=== PATIENT | male | born 1985 | race Caucasian/White ===

== ENCOUNTER → 2016-08-17 | Outpatient (CLI) | payer OTHER ==
[~2016-08-17] MED LIST: PSEUTAB98 PO
--- NOTE | 2016-08-17 11:43 | DIAGNOSTIC IMAGING REPORT ---
LEFT SHOULDER MIN 2 VIEWS ROUTINE CLINICAL HISTORY: Left shoulder pain. COMPARISON STUDY: None. FINDINGS: No fracture or dislocation within the left shoulder. The left clavicle is intact. Soft tissues are unremarkable. IMPRESSION: No fracture or dislocation within the left shoulder. Electronically signed by: Victoriano Puente M.D. 08/17/2016 11:41 AM
--- NOTE | 2016-08-17 11:48 | DIAGNOSTIC IMAGING REPORT ---
RIBS UNILATERAL WITH PA CHEST CLINICAL HISTORY: Right-sided rib pain. Coughing. COMPARISON STUDY: Chest 02/17/2015. FINDINGS: The lungs are clear. The heart is normal in size. No pleural effusions. No pneumothorax. No rib fractures. IMPRESSION: No rib fractures. No pneumothorax. Electronically signed by: Victoriano Puente M.D. 08/17/2016 11:46 AM
== END | disposition home or self-care (01) ==
LOC: C.RADPV 11:16
PROVIDERS: ATTEND Nurse Practitioner Family
DX: R07.81 Pleurodynia (principal); M25.512 Pain in left shoulder

== ENCOUNTER → 2017-09-13 | Outpatient (CLI) | payer OTHER ==
--- NOTE | 2017-09-13 10:39 | DIAGNOSTIC IMAGING REPORT ---
R ANKLE MIN 3 VIEWS ROUTINE CLINICAL HISTORY: 31 years-old Male presenting with RIGHT ANKLE INJURY. TECHNIQUE: Frontal, mortise, and lateral views of the right ankle were obtained. COMPARISON: 04/11/2011. FINDINGS: Ankle mortise intact. No acute fracture or malalignment. No advanced degenerative change. Mild soft tissue swelling over the lateral malleolus may be present. IMPRESSION: No acute osseous injury of the right ankle. Electronically signed by: Sammy Chamorro M.D. 09/13/2017 10:38 AM Dictated Date/Time: 09/13/2017 10:37 AM
== END | disposition home or self-care (01) ==
LOC: C.RADPV 10:14
PROVIDERS: ATTEND Family Medicine
DX: S99.911A Unspecified injury of right ankle, initial encounter (principal); X58.XXXA Exposure to other specified factors, initial encounter

== ENCOUNTER → 2017-10-18 | Outpatient (CLI) | payer OTHER | END | disposition home or self-care (01) | LOC: C.LAB 09:09 | PROVIDERS: ATTEND Obstetrics & Gynecology | DX: N46.9 Male infertility, unspecified (principal) ==